=== PATIENT | female | born 1960 | race Caucasian/White ===

== ENCOUNTER 2017-07-20 07:30 | Day surgery (SDC) | payer OTHER ==
[2017-07-20] MEDS ORDERED: PROPOFOL 500 MG/50 ML EMU IV ONE (08:35)
[2017-07-20] MEDS ORDERED: LIDOCAINE HCL 1% MPF SOL ONE (08:35)
[2017-07-20 09:34] VITALS: BP 120/73; PULSE 66; RESP 18; TEMP 97.6; O2SAT 100
== END 2017-07-20 10:06 | disposition home or self-care (01) | DRG 951 ==
LOC: SURG 07:30
PROVIDERS: ATTEND Surgery
DX: Z12.11 Encounter for screening for malignant neoplasm of colon (principal); Z86.010 Personal history of colon polyps
CPT/HCPCS: J2001; J2704